=== PATIENT | female | born 1980 | race Two or more races ===

== ENCOUNTER 2019-02-11 10:16 | Outpatient (CLI) | payer OTHER ==
[2019-02-11 10:50] LABS: BASOPHILS # (AUTO) 0.1 K/uL (0.0-8.0); EOSINOPHILS % (AUTO) 0.4 % (0.0-7.0); HEMATOCRIT 41.9 % (31.2-41.9); HEMOGLOBIN 14.1 g/dL (10.9-14.3); LYMPHOCYTES # (AUTO) 1.6 K/uL (20.0-40.0); LYMPHOCYTES % (AUTO) 21.7 % (20.5-51.5); MEAN CORPUSCULAR HEMOGLOBIN 31.9 uug (24.7-32.8); MEAN CORPUSCULAR HGB CONC 34 g/dL (32.3-35.6); MEAN CORPUSCULAR VOLUME 94.6 fL (75.5-95.3); MONOCYTES # (AUTO) 0.2 K/uL (2.0-10.0); MONOCYTES % (AUTO) 3.2 % (0.0-11.0); NEUTROPHILS # (AUTO) 5.3 K/uL (1.8-8.9); NEUTROPHILS % (AUTO) 73.7 % (38.5-71.5); PLATELET COUNT (AUTO) 369 K/uL (179-408); RED BLOOD CELL COUNT(AUTO) 4.43 MIL/uL (3.63-4.92); WHITE BLOOD COUNT (AUTO) 7.2 K/uL (3.8-11.8)
[2019-02-11 10:56] LABS: *BILIRUBIN,URIN NEGATIVE (NEGATIVE); *BLOOD, URINE 1+ (NEGATIVE); *CLARITY,URINE CLEAR (CLEAR); *COLOR,URINE YELLOW (YELLOW); *KETONES,URINE NEGATIVE (NEGATIVE); LEUKOCYTE ESTERASE ,URINE 1+ (NEGATIVE); NITRITE, URINE NEGATIVE (NEGATIVE); PH,URINE 6.5 (5.0-8.0); UGLUCOSE NEGATIVE (NEGATIVE)
[2019-02-11 11:03] LABS: CREATININE 0.7 mg/dL (0.6-1.3); POTASSIUM 3.6 mmol/L (3.5-5.1)
[2019-02-11 11:07] LABS: MUCUS,URINE MANY /LPF (0-FEW); SQUAMOUS EPITHELIAL CELL,UR MANY /HPF (NONE SEEN)
[2019-02-11 11:08] LABS: BACTERIA,URINE FEW /HPF (NONE SEEN); BILIRUBIN,TOTAL 0.4 mg/dL (0.2-1.0)
== END 2019-02-11 23:59 | disposition home or self-care (01) ==
LOC: LAB 10:16
PROVIDERS: ATTEND Internal Medicine
DX: Z01.818 Encounter for other preprocedural examination (principal); Z47.2 Encounter for removal of internal fixation device
CPT/HCPCS: 36415; 85025; 85730; 87086; A4663

== ENCOUNTER 2019-02-14 08:04 | Day surgery (SDC) | payer OTHER ==
[~2019-02-14 08:04] MED LIST: POLYMYXIN B SULFATE 500,000 UNITS, BACITRACIN 50,000 UNITS, NORMAL SALINE 20 ML MC ONE
[2019-02-14] MEDS ORDERED: SEVOFLURANE 250 ML BOTTLE IH ONE (08:05)
[2019-02-14] MEDS ORDERED: METOCLOPRAMIDE HCL 10 MG/2 ML VIAL IV ONE (08:05)
[2019-02-14] MEDS ORDERED: ONDANSETRON 4 MG/2 ML VIAL IV ONE (08:05)
[2019-02-14] MEDS ORDERED: PROPOFOL 200 MG/20 ML BOTTLE IV ONE (08:05)
[2019-02-14] MEDS ORDERED: IV NORMAL SALINE 1000 ML BAG IV ONE (08:05)
[2019-02-14] MEDS ORDERED: CEFAZOLIN 1 G VIAL IM ONE (08:05)
[2019-02-14 08:25] LABS: *URINE HCG, QUAL NEGATIVE (NEGATIVE)
[2019-02-14] MEDS ORDERED: FENTANYL CITRATE 100 MCG/2 ML AMPUL ONE ×3 (10:10→11:54)
[2019-02-14] MEDS ORDERED: MIDAZOLAM HCL 2 MG/2 ML VIAL ONE (10:10)
[2019-02-14] MEDS ORDERED: BUPIVACAINE PF 0.5% 30 ML VIAL ONE (10:45)
[2019-02-14] MEDS ORDERED: MEPERIDINE 25 MG/1 ML DISP.SYRIN ONE (11:35)
[2019-02-14] MEDS ORDERED: TRAMADOL HCL 50 MG TABLET ONE (12:42)
[2019-02-14] MEDS ORDERED: ONDANSETRON 4 MG/2 ML VIAL ONE (12:49)
== END 2019-02-14 13:34 | disposition home or self-care (01) ==
LOC: DS 08:04
PROVIDERS: ATTEND Orthopaedic Surgery
DX: M25.461 Effusion, right knee (principal); F15.90 Other stimulant use, unspecified, uncomplicated; Z98.890 Other specified postprocedural states
CPT/HCPCS: 20680; 73560; 84703; J2175; J2250; J2405; J3010 ×2; J3490 ×3; J7120; J0690; J2765; J7030